=== PATIENT | male | born 1955 | race Caucasian/White ===

== ENCOUNTER → 2017-10-18 | Day surgery (SDC) | payer OTHER ==
[~2017-10-18] MED LIST: TAMS0.4C PO
== END | disposition home or self-care (01) ==
LOC: ADM 10-16 14:15 → CIR.AMB 11:49
DX: C67.2 Malignant neoplasm of lateral wall of bladder (principal); C67.3 Malignant neoplasm of anterior wall of bladder

== ENCOUNTER 2018-08-08 09:35 | Day surgery (SDC) | payer OTHER | END 2018-08-08 18:35 | disposition home or self-care (01) | LOC: CIR.AMB 09:35 | DX: C67.2 Malignant neoplasm of lateral wall of bladder (principal); C67.3 Malignant neoplasm of anterior wall of bladder; C67.1 Malignant neoplasm of dome of bladder ==

== ENCOUNTER 2025-04-14 10:03 | Outpatient (CLI) | payer OTHER | END 2025-04-14 16:02 | disposition home or self-care (01) | LOC: MRI 10:03 | PROVIDERS: ATTEND Specialist | DX: M25.562 Pain in left knee (principal); M17.12 Unilateral primary osteoarthritis, left knee | CPT/HCPCS: 73721 ==